=== PATIENT | female | born 1980 | race Two or more races ===

== ENCOUNTER → 2022-09-04 | Outpatient (CLI) | payer OTHER ==
[2022-09-04 07:12] LABS: Basophils # (auto) 0 10 ^3/uL (0-0.2); Basophils % (auto) 0.6 % (0.0-2.0); Eosinophils # (auto) 0.1 10 ^3/uL (0-0.8); Eosinophils % (auto) 1.7 % (0.0-7.0); Hematocrit 41.3 % (36.0-46.0); Lymphocytes # (auto) 2.2 10 ^3/uL (0.4-5.4); Lymphocytes % (auto) 29.5 % (10.0-50.0); Mean Corpuscular Hemoglobin 30.8 pg (28.0-32.0); Mean Corpuscular Volume 90.6 fL (80.0-100.0); Monocytes # (auto) 0.4 10 ^3/uL (0-1.3); Neutrophils # (auto) 4.6 10 ^3/uL (1.6-8.6); Neutrophils % (auto) 62.2 % (37.0-80.0); Red Blood Cells 4.56 10^6/uL (4.0-5.20); Red Cell Distribution Width 13.6 % (11.8-14.3); White Blood Cell 7.3 10^3/uL (4.4-10.8)
[2022-09-04 07:16] LABS: Urine Bacteria NONE SEEN /hpf (None Seen); Urine Blood Negative /uL (Negative); Urine Specific Gravity 1.004 (1.001-1.035); Urine WBC 38 /hpf (0 - 5)
[2022-09-04 07:44] LABS: Potassium 4.3 mmol/L (3.5-5.1)
[2022-09-04 07:53] LABS: Albumin 3.7 g/dL (3.4-5.0); BUN/Creatinine Ratio 7.6 (10.0-20.0); Bilirubin, Total 0.4 mg/dL (0.2-1.0); Calcium 8.9 mg/dL (8.5-10.1); Total Protein 7.8 g/dL (6.4-8.2); Uric Acid 5.1 mg/dL (2.6-6.0)
== END | disposition home or self-care (01) ==
LOC: LAB 06:40
PROVIDERS: ATTEND Family Medicine
DX: E66.9 Obesity, unspecified (principal); F32.9 Major depressive disorder, single episode, unspecified; N39.0 Urinary tract infection, site not specified
CPT/HCPCS: 36415; 80053; 80061; 81001; 82306; 82607; 83036; 83540; 84403; 84443; 84550; 85025

== ENCOUNTER → 2024-01-12 | Outpatient (CLI) | payer OTHER ==
[2024-01-12 08:11] LABS: Urine Bacteria None Seen /hpf (None Seen)
[2024-01-12 08:47] LABS: Basophils # (auto) 0 10 ^3/uL (0-0.2); Basophils % (auto) 0.5 % (0.0-2.0); Eosinophils # (auto) 0.1 10 ^3/uL (0-0.8); Eosinophils % (auto) 1.4 % (0.0-7.0); Hematocrit 42.8 % (36.0-46.0); Hemoglobin 14.6 g/dL (12.2-16.2); Lymphocytes % (auto) 24.6 % (10.0-50.0); Mean Corpuscular Hemoglobin 30.6 pg (28.0-32.0); Mean Corpuscular Hgb Conc. 34.1 g/dL (32.0-36.0); Mean Corpuscular Volume 89.7 fL (80.0-100.0); Monocytes # (auto) 0.6 10 ^3/uL (0-1.3); Monocytes % (auto) 6.9 % (0.0-12.0); Neutrophils # (auto) 5.5 10 ^3/uL (1.6-8.6); Neutrophils % (auto) 66.6 % (37.0-80.0); Platelet Count (auto) 399 10^3/uL (140-450); Red Blood Cells 4.77 10^6/uL (4.0-5.20); Red Cell Distribution Width 12.9 % (11.8-14.3); White Blood Cell 8.3 10^3/uL (4.4-10.8)
[2024-01-12 08:55] LABS: % Iron Saturation 23.5 % (15-50)
[2024-01-12 08:56] LABS: Urine Blood Negative /uL (Negative); Urine Clarity Clear (Clear); Urine Color Light-Yellow (Yellow); Urine Protein, UAD Negative (Negative); Urine Specific Gravity 1.012 (1.001-1.035); Urine Urobilinogen Normal (Negative); Urine WBC 3 /hpf (0 - 5)
[2024-01-12 09:06] LABS: Alanine Aminotransferase 18 U/L (7-40); Albumin 4.4 g/dL (3.2-4.8); Alkaline Phosphatase 105 U/L (46-116); Anion Gap 6 (5-15); Aspartate Aminotransferase 14 U/L (13-40); BUN/Creatinine Ratio 9.9 (10.0-20.0); Blood Urea Nitrogen 8 mg/dL (9-23); Calcium 9.8 mg/dL (8.7-10.4); Carbon Dioxide 26 mmol/L (20-31); Chloride 108 mmol/L (98-107); Glucose 105 mg/dL (74-106); LDL Cholesterol 80 mg/dL (< 100); Magnesium 2.2 mg/dL (1.6-2.6); Potassium 4.5 mmol/L (3.5-5.1); Sodium 140 mmol/L (136-145); Triglycerides 146 mg/dL (< 150)
[2024-01-12 09:07] LABS: Bilirubin, Total 0.5 mg/dL (0.2-1.0); Cholesterol 136 mg/dL (< 200); HDL Cholesterol 40 mg/dL (40-59); Total Protein 7.1 g/dL (5.7-8.2)
[2024-01-12 09:18] LABS: Uric Acid 4.8 mg/dL (3.1-7.8)
== END | disposition home or self-care (01) ==
LOC: LAB 07:43
PROVIDERS: ATTEND Family Medicine
DX: E78.00 Pure hypercholesterolemia, unspecified (principal); E78.5 Hyperlipidemia, unspecified; R51.9 Headache, unspecified; N92.6 Irregular menstruation, unspecified
CPT/HCPCS: 36415; 80053; 80061; 81001; 82306; 83036; 83540; 83550; 83735; 84443; 84550; 85025; 87086

== ENCOUNTER 2024-10-29 08:41 | Outpatient (CLI) | payer OTHER ==
[2024-10-29 09:45] LABS: Hematocrit 42.2 % (36.0-46.0); Hemoglobin 14.9 g/dL (12.2-16.2); Mean Corpuscular Hemoglobin 31.8 pg (28.0-32.0); Mean Corpuscular Volume 90.0 fL (80.0-100.0); Nucleated Red Blood Cells % 0.0 %
[2024-10-29 10:10] LABS: Alanine Aminotransferase 14 U/L (7-40); Alkaline Phosphatase 93 U/L (46-116); Anion Gap 10 (5-15); Calcium 9.3 mg/dL (8.7-10.4); Carbon Dioxide 26 mmol/L (20-31); Chloride 103 mmol/L (98-107); Potassium 4.3 mmol/L (3.5-5.1); Sodium 139 mmol/L (136-145)
[2024-10-29 10:12] LABS: BUN/Creatinine Ratio 9.3 (10.0-20.0); Glucose 95 mg/dL (74-106); Magnesium 2.3 mg/dL (1.6-2.6); Total Protein 7.7 g/dL (5.7-8.2)
[2024-10-29 10:13] LABS: Albumin 4.7 g/dL (3.2-4.8)
[2024-10-29 10:14] LABS: Bilirubin, Total 0.6 mg/dL (0.2-1.0); Cholesterol 199 mg/dL (< 200); HDL Cholesterol 43 mg/dL (40-59)
[2024-10-29 10:19] LABS: Blood Urea Nitrogen 8 mg/dL (9-23); Triglycerides 160 mg/dL (< 150)
[2024-10-29 10:28] LABS: Iron 90.0 ug/dL (50-170)
[2024-10-29 10:31] LABS: Total Iron Binding Capacity 330.0 ug/dL (250-425)
[2024-10-29 10:34] LABS: Uric Acid 5.3 mg/dL (3.1-7.8)
[2024-10-29 10:36] LABS: Follicle Stimulating Hormone 5.04 IU/L (SEE BELOW)
[2024-10-29 12:13] LABS: Urine Protein, UAD Negative (Negative)
== END 2024-10-29 17:00 | disposition home or self-care (01) ==
LOC: LAB 08:41
PROVIDERS: ATTEND Family Medicine
DX: E55.9 Vitamin D deficiency, unspecified (principal); E78.5 Hyperlipidemia, unspecified; E78.00 Pure hypercholesterolemia, unspecified; N39.0 Urinary tract infection, site not specified; N92.6 Irregular menstruation, unspecified; N94.6 Dysmenorrhea, unspecified
CPT/HCPCS: 36415; 80053; 80061; 81001; 82306; 82607; 82670; 82672; 83001; 83002; 83036; 83540; 83550; 83735; 84144; 84146; 84403; 84443; 84550; 85025; 87086; 87088; 87186